=== PATIENT | male | born 1955 ===

== ENCOUNTER 2018-12-30 01:36 | Outpatient (RCR) | payer MEDICARE, SELFPAY | END 2018-12-30 23:59 | disposition home or self-care (01) | LOC: INF 01:36 | PROVIDERS: PCP Internal Medicine; Visit Provider Internal Medicine | DX: Z94.81 Bone marrow transplant status (principal); D75.81 Myelofibrosis | CPT/HCPCS: 36415; 86850; 86900; 86901; 86920; 85025 ==

== ENCOUNTER 2019-01-06 00:56 | Outpatient (RCR) | payer MEDICARE, SELFPAY ==
[2018-12-30 11:16] LABS: HCT 21.5 % (40.0-50.0); HGB 7.5 g/dL (13.5-17.5); Mean Corp. HGB Concentration 34.9 g/dL (32.0-36.0); Mean Corpuscular Hemoglobin 28.5 pg (27.0-33.0); Mean Corpuscular Volume 81.7 fL (80-95); Mean Platelet Volume 10.2 fL (8.0-11.0); RBC 2.63 m/cumm (4.50-6.00); RBC Distribution Width 15.7 % (11.8-14.1); White Blood Cell Count 13.79 k/cumm (4.4-10.8)
[2018-12-30 11:35] LABS: Absolute Lymphocyte Count 0.55 k/cumm (1.2-3.4); Absolute Monocyte Count 1.65 k/cumm (0.11-0.7); Absolute Neutrophil Count 11.17 k/cumm (1.2-6.7); Platelet Count 73 x1000/uL (130-400)
[2018-12-30 11:36] LABS: Absolute Basophil Count 0.14 k/cumm (0.0-0.2); Anisocytosis 1+; Diff Comment Manual Differential
[2018-12-30 11:37] LABS: Poikilocytes 1+
[2018-12-31] VITALS (7 sets, daily range): BP systolic 94–117; BP diastolic 53–65; PULSE 81–86; RESP 17–18; TEMP 35.9–36; O2SAT 81–94
[2018-12-31] MEDS: Normal Saline Flush 10 ML SYR IVP (12:00)
--- NOTE | 2018-12-31 12:13 | NUR.NOTE ---
PATIENT STATES O2SAT READING WOULD BE INACCURATE DUE TO RENADS Nursing Note:
== END 2019-01-30 23:59 | disposition home or self-care (01) ==
LOC: INF 00:56
PROVIDERS: Internal Medicine; PCP Internal Medicine; Visit Provider Internal Medicine
DX: Z94.81 Bone marrow transplant status (principal); D75.81 Myelofibrosis
CPT/HCPCS: 36430; 86850; 86900; 86901; 86920; 86945; 85025; 86644; P9016